=== PATIENT | male | born 1980 | race Caucasian/White ===

== ENCOUNTER 2016-10-03 12:30 | Emergency (ER) | payer SELFPAY ==
[~2016-10-03] VITALS: Ht 190.5 cm; Wt 106.0 kg
[2016-10-03] MEDS ORDERED: IBUP800T23 PO (13:53)
[2016-10-03] MEDS ORDERED: DICL75TA PO (13:58)
[2016-10-03] MEDS ORDERED: TRAM50TA PO (13:58)
[2016-10-03] MEDS ORDERED: AMOX875T PO (13:58)
[2016-10-03] MEDS ORDERED: MAGICADU2 SWISH-SWAL (13:58)
--- NOTE | 2016-10-03 14:14 | PD ---
HPI Chief Complaint: ENT Complaint Time Seen by Provider: 14:11 Travel History International Travel<30 days: No Contact w/Intl Traveler<30days: No Traveled to known affect area: No History of Present Illness HPI 35-year-old male that presents to the ED for evaluation of oral pain. Per patient he has had pain on his right upper and lower jaw for the past 2 weeks. Per patient is getting worse. Per patient his been taking ibuprofen with some relief but the pain always comes back. Per patient he has not seen his dentist yet. Per patient hurts to swallow. He does state that he chews tobacco but doesn't smoke. He denies any fevers chills or sweats. Pain is 7 out of 10 and gets worse with chewing. Patient has not seen a dentist. Patient denies any other medical problems. No history of IV drug abuse or substance abuse. He takes no medications of any kind other than ibuprofen. PFSH Past Medical History Medical History: Denies Significant Hx Social History Alcohol Use: No Tobacco Use: Yes (chewing) Substance Use: No Allergies-Medications (Allergen,Severity, Reaction): Coded Allergies: No Known Allergies (Unverified , 10/03/16) Reported Meds & Prescriptions Reported Meds & Active Scripts Active Amoxicillin 875 Mg Tab 875 Mg PO BID 10 Days Magic Mouthwash Adult Liq (Multi-Ingredient Mouthwash/Gargle) 120 Ml Susp 5 Ml SWISH-SWAL ACHS Each 5mL contains: Nystatin 200,000units, Diphenhydramine 4.25mg, Viscous Lidocaine 10mg, Adorno syrup 0.8 mL Tramadol (Tramadol HCl) 50 Mg Tab 50 Mg PO Q6H PRN Diclofenac Sodium DR (Diclofenac Sodium) 75 Mg Tabdr 75 Mg PO BID PRN Reported Ibuprofen 800 Mg Tab 800 Mg PO BID PRN Review of Systems General / Constitutional: No: Fever, Chills, Weight Gain, Weight Loss, Other Eyes: No: Diploplia, Blurred Vision, Photophobia, Drainage, Redness, Foreign Body Sensation, Pain, Tearing, Blind Spots, Visual changes, Blindness, Other HENT: Positive: Dental Difficulties, No: Headaches, Vertigo, Lightheadedness, Sore Throat, Rhinitis, Rhinorrhea, Congestion, Nosebleed, Neck Stiffness, Neck Pain, Masses, Gingival Bleeding, Ear Discharge, Earache, Other Cardiovascular: No: Chest Pain or Discomfort, Palpitations, Irregular Rhythm, Tachycardia, Diaphoresis, Syncope, Dyspnea on exertion, Varicosities, Edema, Cyanosis, Varicosities, Phlebitis, Claudication, Other Respiratory: No: Cough, Shortness of Breath, Wheezing, Sneezing, Orthopnea, Hemoptysis, Stridor, Night Sweats, Pleuritic Pain, Other Gastrointestinal: No: Nausea, Vomiting, Diarrhea, Abdominal Pain, Hematemesis, Hematochezia, Constipation, Changes in Bowel Habits, Indigestion, Dysphagia, Loss of Appetite, Other Genitourinary: No: Urgency, Frequency, Dysuria, Nocturia, Hematuria, Decreased Urinary Output, Oliguria, Hesitancy, Dribbling, Incontinence, Pelvic Pain, Flank Pain, Dyspareunia, Discharge, Dysmenorrhea, Menorrhagia, Metorrhagia, Vaginal Bleeding, Other Musculoskeletal: No: Myalgias, Arthralgias, Limited ROM, Weakness, Cramping, Edema, Pain, Atrophy, Other Skin: No Rash, No Itching, No Dryness, No Lumps, No Hives, No Change in Pigmentation, No Change in nails, No Alopecia, No Lesions, No Breast Lumps, No Breast Tenderness, No Breast Swelling, No Other Neurologic: No: Weakness, Dizziness, Syncope, Focal Abnormalities, Coordination Problem, Tremor, Ataxia, Headache, Change in Mentation, Slurred Speech, Paresthesia, Incontinence, Seizures, Sensory Disturbance, Other Psychiatric: No: Anxiety, Depression, Suicidal Ideations, Disorder of Thought, Mood Disorder, Substance Abuse, Homicidal Ideation, Other Endocrine: No: Heat Intolerance, Cold Intolerance, Polyuria, Polydipsia, Other Hematologic/Lymphatic: No: Easy Bruising, Lymph Node Enlargement, Other Physical Exam Narrative GENERAL: SKIN: Warm and dry. HEAD: Atraumatic. Normocephalic. EYES: Pupils equal and round. No scleral icterus. No injection or drainage. ENT: No nasal bleeding or discharge. Mucous membranes pink and moist. Tongue is midline. No blood deviation. Dental: Patient has multiple cavities and multiple teeth. No sign of deformity or mass. Some gum irritation noted but no abscess. Tenderness to palpation with touch is somewhat petite especially the lower jaw. No lymphadenopathy noted. No masses. NECK: Trachea midline. No JVD. CARDIOVASCULAR: Regular rate and rhythm. RESPIRATORY: No accessory muscle use. Clear to auscultation. Breath sounds equal bilaterally. GASTROINTESTINAL: Abdomen soft, non-tender, nondistended. Hepatic and splenic margins not palpable. MUSCULOSKELETAL: Extremities without clubbing, cyanosis, or edema. No obvious deformities. NEUROLOGICAL: Awake and alert. No obvious cranial nerve deficits. Motor grossly within normal limits. Five out of 5 muscle strength in the arms and legs. Normal speech. PSYCHIATRIC: Appropriate mood and affect; insight and judgment normal. MDM Medical Decision Making Medical Screen Exam Complete: Yes Emergency Medical Condition: Yes Medical Record Reviewed: Yes Differential Diagnosis Dental abscess versus dentalgia versus normal exam Narrative Course 35-year-old male that presents to the ED for evaluation of dental pain. Patient was properly examined and was found to have signs and symptoms consistent appears to be dental cavity with infection. Patient will be treated for this with amoxicillin, Magic mouthwash, tramadol, diclofenac sodium. Told to follow up with PCP. See ED for any worsening symptoms. Ice or warm compresses. Liquid diet until better. Given dental referral. Diagnosis Primary Impression: Dentalgia Patient Instructions: General Instructions Additional Instructions: Take medications as prescribed. Follow-up with dentist. See ED for any worsening symptoms. Do not drink or drive while taking pain medication. Apply ice or heat as needed for pain Med/Other Pt SpecificInfo: Prescription(s) given Scripts Amoxicillin 875 Mg Tne143 Mg PO BID 10 Days Prov:Enrique Saleh MD 10/03/16 Rktsqyly-Kutuwuzpowuqnbl-Egzelempy Liq (Magic Mouthwash Adult Liq)120 Ml Susp5 Ml SWISH-SWAL ACHS #120 ML Ref 0 Each 5mL contains: Nystatin 200,000units, Diphenhydramine 4.25mg, Viscous Lidocaine 10mg, Adorno syrup 0.8 mL Prov:Enrique Saleh MD 10/03/16 Tramadol 50 Mg Tab50 Mg PO Q6H PRN (PAIN) #12 TAB Ref 0 Prov:Enrique Saleh MD 10/03/[address] 75 Mg Tabdr75 Mg PO BID PRN (PAIN SCALE 1 TO 10) #20 TAB Prov:Enrique Saleh MD 10/03/16 Disposition: 01 DISCHARGE HOME Condition: Stable Aly Carter Oct 03, 2016 14:14
== END 2016-10-03 14:25 | disposition home or self-care (01) ==
LOC: NEPB 12:30
DX: K08.89 Other specified disorders of teeth and supporting structures (principal); F17.220 Nicotine dependence, chewing tobacco, uncomplicated
CPT/HCPCS: 99282